=== PATIENT | female | born 1990 | race Caucasian/White ===

== ENCOUNTER 2016-09-30 14:49 | Emergency (ER) | payer MEDICAID | END 2016-09-30 17:02 | disposition home or self-care (01) | LOC: D.ER 14:49 | DX: S16.1XXA Strain of muscle, fascia and tendon at neck level, initial encounter (principal); V49.9XXA Car occupant (driver) (passenger) injured in unspecified traffic accident, initial encounter; Y93.89 Activity, other specified; Y92.410 Unspecified street and highway as the place of occurrence of the external cause; M62.838 Other muscle spasm; F41.9 Anxiety disorder, unspecified; F32.9 Major depressive disorder, single episode, unspecified; F17.200 Nicotine dependence, unspecified, uncomplicated ==

== ENCOUNTER 2017-05-18 18:55 | Emergency (ER) | payer MEDICAID ==
[2017-05-18 19:58] LABS: BASOPHILS 0.1 % (0-2); EOSINOPHILS 4.1 % (0-7); HEMATOCRIT 39.2 % (36.0-48.0); HEMOGLOBIN 13.6 g/dL (12-16); IMMATURE GRANULOCYTES 0.3 % (0-5); LYMPHOCYTES 16.2 % (15-50); MCH 31.5 pg (26.0-34.0); MCHC 34.7 g/dL (31.0-37.0); MCV 90.7 fL (80.0-100.0); MEAN PLATELET VOLUME 11.4 fL (7.4-10.4); MONOCYTES 5.2 % (2-11); NEUTROPHILS 74.1 % (40-80); PLATELET COUNT 260 10x3/uL (130-400); RBC 4.32 10x6/uL (4.00-5.40); RDW 12.1 % (11.5-14.5); WBC 8.7 10x3/uL (4.8-10.8)
[2017-05-18 20:04] LABS: ALKALINE PHOSPHATASE 70 U/L (46-116); ALT (SGPT) 12 U/L (10-68); BILIRUBIN - TOTAL 0.26 mg/dL (0.2-1.3); CALC OSMOLALITY 280 mosm/kg (275-300); CALCIUM 8.7 mg/dL (8.5-10.1); CARBON DIOXIDE 30.3 mmol/L (21.0-32.0); CHLORIDE - SERUM 104 mmol/L (98-107); CREATININE - SERUM 0.7 mg/dL (0.6-1.3); GLUCOSE 74 mg/dL (74-106); POTASSIUM - SERUM 4.1 mmol/L (3.5-5.1); PROTEIN - SERUM 7.6 g/dL (6.4-8.2); SODIUM 141 mmol/L (136-145); UREA NITROGEN 14 mg/dL (7-18); eGFR NON AFRICAN AMERICAN > 90 mL/min (90-120)
[2017-05-18 20:08] LABS: APPEARANCE HAZY (CLEAR); BACTERIA MODERATE /hpf (NONE SEEN); BILIRUBIN NEGATIVE (NEGATIVE); CALCIUM OXALATE CRYSTALS OCC /hpf (NONE SEEN); COLOR YELLOW (YELLOW); GLUCOSE NEGATIVE (NEGATIVE); HYALINE CAST RARE /lpf (NONE SEEN); KETONE NEGATIVE (NEGATIVE); NITRITE NEGATIVE (NEGATIVE); PROTEIN NEGATIVE (NEGATIVE); RED CELLS - URINE 0-5 /hpf (0-5); SPECIFIC GRAVITY 1.005 (1.005-1.020); UROBILINOGEN NORMAL (NORMAL)
[2017-05-18 20:25] LABS: UDS - AMPHET NEGATIVE QUAL (NEGATIVE); UDS - BARB NEGATIVE QUAL (NEGATIVE); UDS - BENZO NEGATIVE QUAL (NEGATIVE); UDS - COCAINE NEGATIVE QUAL (NEGATIVE); UDS - OPIATE POSITIVE QUAL (NEGATIVE); UDS - PCP NEGATIVE QUAL (NEGATIVE); UDS - THC POSITIVE QUAL (NEGATIVE)
[2017-05-18 20:30] LABS: AMYLASE - SERUM 82 U/L (25-115); HCG - QUANTITATIVE (MATERNAL) 1501 mIU/mL; LIPASE 165 U/L (73-393)
[2017-06-11] MEDS ORDERED: ULTRAM50 MG PO (12:30)
[2017-06-11] MEDS ORDERED: ZOLOFT50 MG PO (12:31)
[2017-06-11] MEDS ORDERED: KLONOPIN1 MG PO (12:32)
[2017-06-11] MEDS ORDERED: TENORMIN50 MG PO (12:32)
[2017-06-12 08:50] VITALS: BMI 19.8
== END 2017-05-18 21:18 | disposition home or self-care (01) ==
LOC: D.ER 18:55
PROVIDERS: Family Medicine
DX: N39.0 Urinary tract infection, site not specified (principal); O02.81 Inappropriate change in quantitative human chorionic gonadotropin (hCG) in early pregnancy

== ENCOUNTER 2017-05-26 15:02 | Emergency (ER) | payer MEDICAID ==
[2017-05-26 16:45] LABS: BASOPHILS 0.3 % (0-2); HEMATOCRIT 37.3 % (36.0-48.0); HEMOGLOBIN 12.7 g/dL (12-16); IMMATURE GRANULOCYTES 0.1 % (0-5); MCH 30.8 pg (26.0-34.0); MCV 90.3 fL (80.0-100.0); MEAN PLATELET VOLUME 10.2 fL (7.4-10.4); MONOCYTES 5.6 % (2-11); PLATELET COUNT 233 10x3/uL (130-400); RBC 4.13 10x6/uL (4.00-5.40); RDW 12.2 % (11.5-14.5); WBC 7.7 10x3/uL (4.8-10.8)
[2017-05-26 16:48] LABS: APPEARANCE CLEAR (CLEAR); BILIRUBIN NEGATIVE (NEGATIVE); COLOR YELLOW (YELLOW); GLUCOSE NEGATIVE (NEGATIVE); KETONE NEGATIVE (NEGATIVE); NITRITE NEGATIVE (NEGATIVE); PROTEIN NEGATIVE (NEGATIVE); UROBILINOGEN NORMAL (NORMAL)
[2017-05-26 16:49] LABS: WHITE CELLS - URINE OCC /hpf (0-5)
[2017-05-26 16:50] LABS: EPITHELIAL CELLS 0-5 /hpf (0-5); RED CELLS - URINE OCC /hpf (0-5)
[2017-05-26 17:11] LABS: ALBUMIN 3.7 g/dL (3.4-5.0); ALKALINE PHOSPHATASE 53 U/L (46-116); ALT (SGPT) 15 U/L (10-68); BILIRUBIN - TOTAL 0.29 mg/dL (0.2-1.3); CALC OSMOLALITY 276 mosm/kg (275-300); CALCIUM 8.8 mg/dL (8.5-10.1); CARBON DIOXIDE 25.5 mmol/L (21.0-32.0); CHLORIDE - SERUM 104 mmol/L (98-107); CREATININE - SERUM 0.5 mg/dL (0.6-1.3); GLUCOSE 94 mg/dL (74-106); POTASSIUM - SERUM 4.3 mmol/L (3.5-5.1); SODIUM 139 mmol/L (136-145); UREA NITROGEN 9 mg/dL (7-18); eGFR NON AFRICAN AMERICAN > 90 mL/min (90-120)
[2017-05-26 17:38] LABS: HCG - QUANTITATIVE (MATERNAL) 12840 mIU/mL
[2017-06-11] MEDS ORDERED: ULTRAM50 MG PO (12:30)
[2017-06-11] MEDS ORDERED: ZOLOFT50 MG PO (12:31)
[2017-06-11] MEDS ORDERED: KLONOPIN1 MG PO (12:32)
[2017-06-11] MEDS ORDERED: TENORMIN50 MG PO (12:32)
[2017-06-12 08:50] VITALS: BMI 19.8
== END 2017-05-26 20:19 | disposition home or self-care (01) ==
LOC: D.ER 15:02
PROVIDERS: Family Medicine
DX: O26.891 Other specified pregnancy related conditions, first trimester (principal); Z3A.01 Less than 8 weeks gestation of pregnancy; R10.9 Unspecified abdominal pain

== ENCOUNTER 2017-06-12 05:24 | Day surgery (SDC) | payer MEDICAID ==
[2017-06-11 13:10] LABS: BASOPHILS 0.2 % (0-2); EOSINOPHILS 3.4 % (0-7); HEMATOCRIT 37.6 % (36.0-48.0); HEMOGLOBIN 13.2 g/dL (12-16); IMMATURE GRANULOCYTES 0.2 % (0-5); LYMPHOCYTES 32.7 % (15-50); MCH 31.1 pg (26.0-34.0); MCHC 35.1 g/dL (31.0-37.0); MCV 88.5 fL (80.0-100.0); MONOCYTES 4.8 % (2-11); NEUTROPHILS 58.7 % (40-80); RBC 4.25 10x6/uL (4.00-5.40); RDW 12.4 % (11.5-14.5); WBC 5.6 10x3/uL (4.8-10.8)
[2017-06-11 13:22] LABS: PLATELET COUNT 295 10x3/uL (130-400)
[~2017-06-12] VITALS: Ht 165.1 cm; Wt 54.0 kg
[~2017-06-12 05:24] MED LIST: KLONOPIN1 MG PO; TENORMIN50 MG PO; ULTRAM50 MG PO; ZOLOFT50 MG PO
[2017-06-12 08:50] VITALS: BP 104/62; Ht 165.1 cm; Wt 54.0 kg
[2017-06-12 08:57] LABS: HCG URINE POSITIVE (NEGATIVE)
--- NOTE | 2017-06-12 15:31 | NUR ---
1099--PT COMPLAINS OF PAIN, RATES PAIN 10/10. TORADOL 30MG GIVEN PO SIVP, WILL CONTINUE TO MONITOR. DURGA ATWOOD
--- NOTE | 2017-06-12 15:32 | NUR ---
1413--PT COMPLAINS OF PAIN, RATES PAIN 7/10. PERCOCET 5/325MG X2 TABS GIVEN PO FOR PAIN. PT VOIDS, IV DC'D. DURGA ATWOOD 1450--PT REPORTS PAIN IS GETTING BETTER, RATES PAIN 5/10. DISCHARGE INSTRUCTIONS GIVEN, PT VERBALIZES UNDERSTANDING. PT OFF UNIT VIA WC. DURGA ATWOOD
--- NOTE | 2017-06-24 08:12 | OP ---
PATIENT NAME: ANAHI GEORGE MEDICAL RECORD: [id number] :86 LOCATION:D[facility] ADMISSION DATE: SURGEON: CESAR MARTINEZ MD DATE OF OPERATION: 06/12/2017 PREOPERATIVE DIAGNOSES: 1. Unwanted fertility. 2. Missed . POSTOPERATIVE DIAGNOSES: 1. Unwanted fertility. 2. Missed . PROCEDURE PERFORMED: 1. Diagnostic laparoscopy. 2. Bilateral tubal occlusion using Falope rings. 3. Dilation and evacuation. SURGEON: Cesar Martinez MD ANESTHESIOLOGIST: Dr. Mijares. ANESTHETICS: General. FINDINGS: Unremarkable pelvis. Uterus is approximately 8-week in size, moderate amount of products of conception returned. ESTIMATED BLOOD LOSS: Minimal. FLUIDS: 650 cc. URINE OUTPUT: Quantity sufficient void prior to the procedure. COMPLICATIONS: None. DRAINS: None. INDICATIONS: The patient is a 27-year-old multiparous female with unwanted fertility. The patient has unintended that is no longer progressing. The patient is consented for dilation and evacuation of a missed and tubal occlusion using Falope rings. DESCRIPTION OF PROCEDURE: After informed consent was assured, the patient was taken to the operating room where anesthetic was obtained without difficulty. The patient was then prepped and draped in the usual sterile fashion after being placed in stirrups. Incisions made at the umbilicus and a 5-mm trocar was inserted and pneumoperitoneum developed. An 8 mm port was now placed in the midline, 2 fingerbreadths above the symphysis. Through this, a Falope ring applicator was utilized to manipulate the tubes until the fimbriated ends identified on the left. The ring was now applied at the isthmic portion of the tube with good crease formation. This was repeated on the contralateral side. Again, the tube was followed to the fimbriated end, before the Falope ring applied. Anesthetics placed directly over both tubes. The accessory trocars were removed under visualization as the pneumoperitoneum was released. The primary trocar was removed and the skin was closed. Sterile dressing applied OPERATIVE REPORT [id number] ANAHI GEORGE and the legs were positioned for the dilation and evacuation. A speculum was inserted. The cervix grasped and dilated to accommodate a curved 8 curette. This was placed in the uterus and suction applied. Products of conceptions were removed on several passes. Curettage was not performed until good cry was obtained throughout. Single tooth tenaculum was removed from the cervix and the puncture site has adequate hemostasis. The patient was now taken down from the stirrups and sent to the recovery room in stable condition. Sponge, lap and needle count is correct times 2. TRANSINT:[id number] Voice Confirmation ID: [id number] DOCUMENT ID: [id number] CESAR MARTINEZ MD at 0812 CC: [id number] DICTATION DATE: 06/23/17711 DATABASE TECHNICIAN: 06/23/17 0806 [facility] 06/12/17 [address] [place] [address]
== END 2017-06-12 14:50 | disposition home or self-care (01) ==
LOC: D.OPS 05:24 → D.PAN 10:00 → D.OPS 10:00
PROVIDERS: Obstetrics & Gynecology
DX: O02.89 Other abnormal products of conception (principal); Z30.2 Encounter for sterilization

== ENCOUNTER 2017-07-12 02:56 | Emergency (ER) | payer MEDICAID ==
[2017-06-12 08:50] VITALS: BMI 19.8
[2017-07-12 03:55] LABS: BASOPHILS 0.4 % (0-2); EOSINOPHILS 3.1 % (0-7); HEMATOCRIT 40.5 % (36.0-48.0); HEMOGLOBIN 14.3 g/dL (12-16); IMMATURE GRANULOCYTES 0.2 % (0-5); LYMPHOCYTES 40.1 % (15-50); MCH 31.4 pg (26.0-34.0); MCHC 35.3 g/dL (31.0-37.0); MCV 88.8 fL (80.0-100.0); MEAN PLATELET VOLUME 10.9 fL (7.4-10.4); NEUTROPHILS 42.2 % (40-80); RBC 4.56 10x6/uL (4.00-5.40); RDW 12.6 % (11.5-14.5); WBC 5.6 10x3/uL (4.8-10.8)
[2017-07-12 03:59] LABS: UDS - AMPHET POSITIVE QUAL (NEGATIVE); UDS - BARB NEGATIVE QUAL (NEGATIVE); UDS - BENZO POSITIVE QUAL (NEGATIVE); UDS - COCAINE NEGATIVE QUAL (NEGATIVE); UDS - OPIATE POSITIVE QUAL (NEGATIVE); UDS - PCP NEGATIVE QUAL (NEGATIVE); UDS - THC POSITIVE QUAL (NEGATIVE)
[2017-07-12 04:03] LABS: PLATELET COUNT 209 10x3/uL (130-400)
[2017-07-12 04:03] LABS: APPEARANCE HAZY (CLEAR); BILIRUBIN NEGATIVE (NEGATIVE); COLOR YELLOW (YELLOW); GLUCOSE NEGATIVE (NEGATIVE); KETONE SMALL mg/dL (NEGATIVE); NITRITE NEGATIVE (NEGATIVE); PROTEIN TRACE mg/dL (NEGATIVE); UROBILINOGEN NORMAL (NORMAL)
[2017-07-12 04:04] LABS: BACTERIA NONE SEEN /hpf (NONE SEEN); EPITHELIAL CELLS 0-5 /hpf (0-5)
[2017-07-12 04:10] LABS: HCG SERUM NEGATIVE (NEGATIVE)
[2017-07-12 04:18] LABS: ALBUMIN 4.6 g/dL (3.4-5.0); BILIRUBIN - TOTAL 0.5 mg/dL (0.2-1.3); CALCIUM 9.6 mg/dL (8.5-10.1); CARBON DIOXIDE 27.5 mmol/L (21.0-32.0); CREATININE - SERUM 1.2 mg/dL (0.6-1.3); POTASSIUM - SERUM 3.5 mmol/L (3.5-5.1); PROTEIN - SERUM 8.4 g/dL (6.4-8.2)
== END 2017-07-12 04:30 | disposition home or self-care (01) ==
LOC: D.ER 02:56
PROVIDERS: Family Medicine
DX: R10.2 Pelvic and perineal pain (principal); N93.9 Abnormal uterine and vaginal bleeding, unspecified

== ENCOUNTER 2017-08-17 11:37 | Emergency (ER) | payer MEDICAID ==
[2017-06-12 08:50] VITALS: BMI 19.8
[2017-08-17 12:44] LABS: APPEARANCE HAZY (CLEAR); BILIRUBIN NEGATIVE (NEGATIVE); COLOR YELLOW (YELLOW); GLUCOSE NEGATIVE (NEGATIVE); KETONE NEGATIVE (NEGATIVE); NITRITE NEGATIVE (NEGATIVE); PROTEIN NEGATIVE (NEGATIVE); SPECIFIC GRAVITY 1.025 (1.005-1.020); UROBILINOGEN NORMAL (NORMAL)
[2017-08-17 12:46] LABS: BACTERIA FEW /hpf (NONE SEEN); EPITHELIAL CELLS 0-5 /hpf (0-5); HYALINE CAST 0-5 /lpf (NONE SEEN); MUCUS >1+ /lpf (NONE SEEN); RED CELLS - URINE 0-5 /hpf (0-5); WHITE CELLS - URINE 0-5 /hpf (0-5)
[2017-08-17 14:43] LABS: BASOPHILS 0.3 % (0-2); EOSINOPHILS 9.7 % (0-7); HEMATOCRIT 40.6 % (36.0-48.0); IMMATURE GRANULOCYTES 0.1 % (0-5); LYMPHOCYTES 32.4 % (15-50); MCH 30.7 pg (26.0-34.0); MCHC 34.5 g/dL (31.0-37.0); MEAN PLATELET VOLUME 10.7 fL (7.4-10.4); MONOCYTES 7.6 % (2-11); NEUTROPHILS 49.9 % (40-80); RBC 4.56 10x6/uL (4.00-5.40); RDW 12.4 % (11.5-14.5); WBC 6.7 10x3/uL (4.8-10.8)
[2017-08-17 14:45] LABS: PLATELET COUNT 257 10x3/uL (130-400)
[2017-08-17 14:57] LABS: HCG SERUM NEGATIVE (NEGATIVE)
[2017-08-17 14:59] LABS: ALBUMIN 4.6 g/dL (3.4-5.0); ALKALINE PHOSPHATASE 66 U/L (46-116); ALT (SGPT) 12 U/L (10-68); BILIRUBIN - TOTAL 0.52 mg/dL (0.2-1.3); CALC OSMOLALITY 279 mosm/kg (275-300); CALCIUM 9.4 mg/dL (8.5-10.1); CARBON DIOXIDE 28.7 mmol/L (21.0-32.0); CHLORIDE - SERUM 103 mmol/L (98-107); CREATININE - SERUM 0.8 mg/dL (0.6-1.3); GLUCOSE 86 mg/dL (74-106); POTASSIUM - SERUM 3.9 mmol/L (3.5-5.1); PROTEIN - SERUM 8.2 g/dL (6.4-8.2); SODIUM 140 mmol/L (136-145); UREA NITROGEN 18 mg/dL (7-18); eGFR NON AFRICAN AMERICAN 90 mL/min (90-120)
== END 2017-08-17 17:07 | disposition home or self-care (01) ==
LOC: D.ER 11:37
PROVIDERS: Emergency Medicine; Physician Assistant
DX: K52.9 Noninfective gastroenteritis and colitis, unspecified (principal); R30.0 Dysuria; F17.200 Nicotine dependence, unspecified, uncomplicated

== ENCOUNTER 2018-02-06 01:48 | Emergency (ER) | payer MEDICAID ==
[~2018-02-06] VITALS: Ht 165.1 cm; Wt 61.4 kg
[2018-02-06 01:56] VITALS: Ht 165.1 cm; Wt 61.4 kg
[2018-02-06 04:14] LABS: UDS - AMPHET POSITIVE QUAL (NEGATIVE); UDS - BARB NEGATIVE QUAL (NEGATIVE); UDS - BENZO POSITIVE QUAL (NEGATIVE); UDS - COCAINE POSITIVE QUAL (NEGATIVE); UDS - OPIATE NEGATIVE QUAL (NEGATIVE); UDS - PCP NEGATIVE QUAL (NEGATIVE); UDS - THC NEGATIVE QUAL (NEGATIVE)
[2018-02-06 04:19] LABS: APPEARANCE CLEAR (CLEAR); BILIRUBIN NEGATIVE (NEGATIVE); COLOR YELLOW (YELLOW); GLUCOSE NEGATIVE (NEGATIVE); KETONE NEGATIVE (NEGATIVE); NITRITE NEGATIVE (NEGATIVE); PROTEIN NEGATIVE (NEGATIVE); SPECIFIC GRAVITY 1.015 (1.005-1.020); UROBILINOGEN NORMAL (NORMAL)
[2018-02-06 05:40] VITALS: BP 128/70
== END 2018-02-06 05:35 | disposition home or self-care (01) ==
LOC: D.ER 01:48
PROVIDERS: Family Medicine
DX: T74.21XA Adult sexual abuse, confirmed, initial encounter (principal); G40.909 Epilepsy, unspecified, not intractable, without status epilepticus; F17.200 Nicotine dependence, unspecified, uncomplicated

== ENCOUNTER 2018-07-02 11:53 | Emergency (ER) | payer MEDICAID ==
[~2018-07-02] VITALS: Ht 165.1 cm; Wt 65.9 kg
[2018-07-02 12:04] VITALS: Ht 165.1 cm; Wt 65.9 kg
[2018-07-02 12:37] LABS: BASOPHILS 0.2 % (0-2); EOSINOPHILS 2.6 % (0-7); HEMATOCRIT 39.1 % (36.0-48.0); HEMOGLOBIN 13.9 g/dL (12-16); IMMATURE GRANULOCYTES 0.2 % (0-5); LYMPHOCYTES 26.2 % (15-50); MCH 31.3 pg (26.0-34.0); MCHC 35.5 g/dL (31.0-37.0); MCV 88.1 fL (80.0-100.0); MEAN PLATELET VOLUME 10.7 fL (7.4-10.4); MONOCYTES 5.8 % (2-11); PLATELET COUNT 273 10x3/uL (130-400); RBC 4.44 10x6/uL (4.00-5.40); RDW 12.5 % (11.5-14.5); WBC 8.8 10x3/uL (4.8-10.8)
[2018-07-02 12:50] LABS: ALKALINE PHOSPHATASE 63 U/L (46-116); ALT (SGPT) 15 U/L (10-68); BILIRUBIN - TOTAL 0.49 mg/dL (0.2-1.3); CALC OSMOLALITY 281 mosm/kg (275-300); CALCIUM 8.8 mg/dL (8.5-10.1); CARBON DIOXIDE 24.5 mmol/L (21.0-32.0); CHLORIDE - SERUM 104 mmol/L (98-107); CREATININE - SERUM 0.9 mg/dL (0.6-1.3); GLUCOSE 89 mg/dL (74-106); LIPASE 113 U/L (73-393); POTASSIUM - SERUM 4.1 mmol/L (3.5-5.1); PROTEIN - SERUM 8.2 g/dL (6.4-8.2); SODIUM 141 mmol/L (136-145); UREA NITROGEN 19 mg/dL (7-18); eGFR NON AFRICAN AMERICAN 78 mL/min (90-120)
[2018-07-02 13:35] LABS: APPEARANCE CLEAR (CLEAR); BILIRUBIN NEGATIVE (NEGATIVE); COLOR YELLOW (YELLOW); GLUCOSE NEGATIVE (NEGATIVE); KETONE NEGATIVE (NEGATIVE); NITRITE NEGATIVE (NEGATIVE); PH 7.5 (5.0-6.0); PROTEIN NEGATIVE (NEGATIVE); UROBILINOGEN NORMAL (NORMAL)
[2018-07-02 13:45] LABS: UDS - AMPHET NEGATIVE QUAL (NEGATIVE); UDS - BARB NEGATIVE QUAL (NEGATIVE); UDS - BENZO POSITIVE QUAL (NEGATIVE); UDS - COCAINE NEGATIVE QUAL (NEGATIVE); UDS - OPIATE NEGATIVE QUAL (NEGATIVE); UDS - PCP NEGATIVE QUAL (NEGATIVE); UDS - THC POSITIVE QUAL (NEGATIVE)
[2018-07-02] MEDS ORDERED: DICLOFENAC SODI50 MG PO (15:31)
[2018-07-02 18:37] VITALS: BP 116/74
== END 2018-07-02 15:30 | disposition home or self-care (01) ==
LOC: D.ER 11:53
PROVIDERS: Family Medicine
DX: R10.2 Pelvic and perineal pain (principal); D25.9 Leiomyoma of uterus, unspecified; R11.2 Nausea with vomiting, unspecified; K92.1 Melena

== ENCOUNTER 2019-07-27 00:47 | Observation (INO) | payer OTHER ==
[~2019-07-27] VITALS: Ht 165.1 cm; Wt 70.5 kg
[2019-07-27] VITALS (12 sets, daily range): BP systolic 82–123; BP diastolic 41–73; Ht 165.1 cm; Wt 70.5 kg
[~2019-07-27 00:47] MED LIST changes: +DICLOFENAC SODI50 MG PO
[2019-07-27] MEDS ORDERED: ATIVAN1 MG PO (00:56)
[2019-07-27] MEDS ORDERED: TRAZODONE HCL150 MG PO ×2 (00:56→03:58)
[2019-07-27 01:29] LABS: BASOPHILS 0.2 % (0-2); EOSINOPHILS 1.6 % (0-7); HEMATOCRIT 39.8 % (36.0-48.0); HEMOGLOBIN 13.8 g/dL (12-16); IMMATURE GRANULOCYTES 0.2 % (0-5); LYMPHOCYTES 14.8 % (15-50); MCH 30.9 pg (26.0-34.0); MCHC 34.7 g/dL (31.0-37.0); MCV 89.2 fL (80.0-100.0); MEAN PLATELET VOLUME 10.2 fL (7.4-10.4); MONOCYTES 9.1 % (2-11); NEUTROPHILS 74.1 % (40-80); PLATELET COUNT 281 10x3/uL (130-400); RBC 4.46 10x6/uL (4.00-5.40); RDW 12.7 % (11.5-14.5); WBC 9.2 10x3/uL (4.8-10.8)
[2019-07-27 01:43] LABS: CALC OSMOLALITY 273 mosm/kg (275-300); CALCIUM 8.8 mg/dL (8.5-10.1); CARBON DIOXIDE 27.6 mmol/L (21.0-32.0); CHLORIDE - SERUM 102 mmol/L (98-107); CREATININE - SERUM 0.9 mg/dL (0.6-1.3); GLUCOSE 85 mg/dL (74-106); POTASSIUM - SERUM 4.5 mmol/L (3.5-5.1); SODIUM 138 mmol/L (136-145); UREA NITROGEN 10 mg/dL (7-18); eGFR NON AFRICAN AMERICAN 77 mL/min (90-120)
[2019-07-27 01:46] LABS: UDS - AMPHET POSITIVE QUAL (NEGATIVE); UDS - BARB NEGATIVE QUAL (NEGATIVE); UDS - BENZO POSITIVE QUAL (NEGATIVE); UDS - COCAINE NEGATIVE QUAL (NEGATIVE); UDS - OPIATE POSITIVE QUAL (NEGATIVE); UDS - PCP NEGATIVE QUAL (NEGATIVE); UDS - THC POSITIVE QUAL (NEGATIVE)
[2019-07-27 01:48] LABS: ALBUMIN 3.6 g/dL (3.4-5.0); ALKALINE PHOSPHATASE 73 U/L (46-116); ALT (SGPT) 20 U/L (10-68); BILIRUBIN - TOTAL 0.46 mg/dL (0.2-1.3); PROTEIN - SERUM 7.6 g/dL (6.4-8.2)
[2019-07-27 01:52] LABS: APPEARANCE CLEAR (CLEAR); BILIRUBIN NEGATIVE (NEGATIVE); COLOR YELLOW (YELLOW); GLUCOSE NEGATIVE (NEGATIVE); KETONE SMALL mg/dL (NEGATIVE); NITRITE NEGATIVE (NEGATIVE); PROTEIN NEGATIVE (NEGATIVE); UROBILINOGEN NORMAL (NORMAL)
[2019-07-27 01:53] LABS: BACTERIA FEW /hpf (NEGATIVE); EPITHELIAL CELLS 0-5 /hpf (0-5); RED CELLS - URINE 0-5 /hpf (0-5); WHITE CELLS - URINE 0-5 /hpf (NEGATIVE)
[2019-07-27 01:54] LABS: HCG URINE NEGATIVE (NEGATIVE)
[2019-07-27] MEDS ORDERED: FLAGYL500 MG PO (02:09)
--- NOTE | 2019-07-27 03:50 | NUR ---
REPORT RECEIVED. PT ARRIVED TO UNIT ESCORTED BY ER STAFF. PT AAOX4, NO ACUTE DISTRESS AT THIS TIME. TRANSFERRED TO ICU BED WITH ALMOST NO ASSISTANCE. ROOM AIR, PIV IN LT AC INFUSING, SEE IV FLOWSHEET. ASSESSMENT COMPLETE, SEE FLOWSHEET. WILL CONTINUE TO MONITOR.
--- NOTE | 2019-07-27 05:00 | NUR ---
PT STATES SHE "DOESN'T FEEL RIGHT." VITALS STABLE, PT ASSESSED, NO ACUTE DISTRESS NOTED. WILL CONTINUE TO MONITOR.
--- NOTE | 2019-07-27 07:30 | NUR ---
PATIENT REPORT RECIEVED. PATIENT RESTING. NO ACUTE DISTRESS. PATIENT STATED SHE IS "ANNOYED" AND READY TO GO HOME. [facility] CONSULT FAXED. SPOKE WITH AL RN REGARDING CONSULT DUE TO PATIENT DENYING ANY SUICIDAL THOUGHTS. WILL CONTINUE TO MONITOR
--- NOTE | 2019-07-27 09:54 | NUR ---
family came to visit. wanted to know what happened. asked patients permission. stated she wanted to be confidential from now on
--- NOTE | 2019-07-27 09:54 | NUR ---
family aunt radha at bedside with permission of patient. patient has family members phone calling people to see if they can picked edge sewing machine operator her stuff
--- NOTE | 2019-07-27 11:30 | NUR ---
EATING TRAY. REQUESTED RANCH. CALLED FOR IT. TURNED OFF LIGHTS. BLANKET PROVIDED. WILL CONTINUE TO MONITOR
--- NOTE | 2019-07-27 13:14 | NUR ---
PATIENT AWAITING DR MCRAE ARRIVAL. READY TO LEAVE
--- NOTE | 2019-07-27 15:00 | NUR ---
patient did admit to taking 3 15 mg of morphine last night
--- NOTE | 2019-07-27 15:30 | NUR ---
DR MCRAE AT BEDSIDE
--- NOTE | 2019-07-27 16:23 | NUR ---
mary refused wheelchair and did not care for medications that were given to pharmacy. stated she just "wanted to get out of here" offered i would go pickling drum operator her perscription and she refused. left with family friend. reminded her of dr kayleen rios tomorrow.
--- NOTE | 2019-07-28 12:00 | CN ---
PATIENT NAME:ANAHI HOGUE MEDICAL RECORD: [id number] : 86 LOCATION:ANUP.2304 ADMIT DATE: 07/27/19 ACCOUNT: [id number] CONSULTING PHYSICIAN: NYLA MCRAE MD REFERRING PHYSICIAN: ELMA SIMPSON DO DATE OF CONSULTATION: 07/27/2019 PSYCHIATRIC CONSULTATION IDENTIFYING DATA: The patient is 29 years old and she is admitted to the hospital secondary to an overdose. CHIEF COMPLAINT: None. HISTORY OF PRESENT ILLNESS: The patient endorses numerous psychosocial problems. She confesses to me that she is addicted to opiates. She says that she had taken some morphine yesterday along with her scheduled dose of Ativan or perhaps an extra dose of her scheduled prescription Ativan and then had 1 or 2 glasses of wine. She did intend to kill herself. She has tried to kill herself in the past and discusses that with me. She discusses the psychosocial stress that she is under, but denies that she would seek or did seek to harm herself yesterday. She does endorse a lot of depressive symptoms. She apparently became addicted to opiates at the age of 17 after she had breast augmentation surgery and has been using opiates ever since. In 2012, she overdosed on heroin. Most recently, she has been using morphine. ASSESSMENT: 1. Major depression. 2. Opiate dependence. 3. Polysubstance abuse. 4. Accidental overdose. PLAN: The patient does not need to be sent to inpatient psychiatric care on an involuntary basis. She is interested in substance abuse treatment and is currently involved in outpatient mental health care and wants to return to continue that process. I have recommended Suboxone treatment to her since she is not able to go to a residential program and have given her information about how to make an appointment with a local Suboxone clinic. TRANSINT:[id number] Voice Confirmation ID: [id number] DOCUMENT ID: [id number] NYLA MCRAE MD at 1200 CC: [id number] DICTATION DATE: 07/27/19 1540 COPY CUTTER: 07/27/19 1625 [facility] IN 07/27/19 [id number] [place] [address]
== END 2019-07-27 16:27 | disposition home or self-care (01) ==
LOC: D.ER 00:47 → D.ICU 03:02 → OBSVTIME 03:02 → D.ICU 16:27
PROVIDERS: Emergency Medicine; ADMIT Family Medicine; ATTEND Family Medicine
DX: T42.4X1A Poisoning by benzodiazepines, accidental (unintentional), initial encounter (principal); F17.203 Nicotine dependence unspecified, with withdrawal; F41.8 Other specified anxiety disorders; F31.9 Bipolar disorder, unspecified; N89.8 Other specified noninflammatory disorders of vagina; F12.90 Cannabis use, unspecified, uncomplicated; Z72.89 Other problems related to lifestyle; F11.20 Opioid dependence, uncomplicated

== ENCOUNTER 2019-09-25 17:04 | Inpatient (IN) | payer MEDICAID ==
[~2019-09-25] VITALS: Ht 165.1 cm; Wt 62.5 kg
[~2019-09-25 17:04] MED LIST changes: +ATIVAN1 MG PO; +FLAGYL500 MG PO; +TRAZODONE HCL150 MG PO
[2019-09-25 17:37] LABS: BILIRUBIN NEGATIVE (NEGATIVE); GLUCOSE NEGATIVE (NEGATIVE); KETONE NEGATIVE (NEGATIVE); NITRITE NEGATIVE (NEGATIVE); SPECIFIC GRAVITY 1.015 (1.005-1.020); UROBILINOGEN NORMAL (NORMAL)
[2019-09-25 17:39] LABS: BACTERIA MODERATE /hpf (NEGATIVE); BASOPHILS 0.4 % (0-2); EOSINOPHILS 3.4 % (0-7); EPITHELIAL CELLS 0-5 /hpf (0-5); HEMATOCRIT 42.3 % (36.0-48.0); HEMOGLOBIN 14.6 g/dL (12-16); LYMPHOCYTES 32.3 % (15-50); MCH 30.5 pg (26.0-34.0); MCHC 34.5 g/dL (31.0-37.0); MCV 88.5 fL (80.0-100.0); MEAN PLATELET VOLUME 10.8 fL (7.4-10.4); MONOCYTES 8.4 % (2-11); NEUTROPHILS 55.5 % (40-80); PLATELET COUNT 257 10x3/uL (130-400); RBC 4.78 10x6/uL (4.00-5.40); RDW 12.3 % (11.5-14.5); WBC 4.7 10x3/uL (4.8-10.8)
[2019-09-25 17:40] LABS: AMORPHOUS SEDIMENT <1+ /lpf (NONE SEEN); HCG URINE NEGATIVE (NEGATIVE)
--- NOTE | 2019-09-25 17:46 | NUR ---
EMS CALLED BACK AND STATE PT HAS BEEN POSTING ON SOCIAL MEDIA THAT SHE IS SI. WAS SAID TO BE SAYING GOOD BYE. PT HAD DENIED SI TO NURSE. WILL HAVE PT SCREENED.
[2019-09-25 17:50] LABS: CALC OSMOLALITY 281 mosm/kg (275-300); CARBON DIOXIDE 28.5 mmol/L (21.0-32.0); CHLORIDE - SERUM 105 mmol/L (98-107); CREATININE - SERUM 0.8 mg/dL (0.6-1.3); GLUCOSE 83 mg/dL (74-106); POTASSIUM - SERUM 3.8 mmol/L (3.5-5.1); SODIUM 143 mmol/L (136-145); UREA NITROGEN 6 mg/dL (7-18); eGFR NON AFRICAN AMERICAN 89 mL/min (90-120)
[2019-09-25 17:56] LABS: UDS - AMPHET POSITIVE QUAL (NEGATIVE); UDS - BARB NEGATIVE QUAL (NEGATIVE); UDS - BENZO POSITIVE QUAL (NEGATIVE); UDS - COCAINE POSITIVE QUAL (NEGATIVE); UDS - OPIATE NEGATIVE QUAL (NEGATIVE); UDS - PCP NEGATIVE QUAL (NEGATIVE); UDS - THC POSITIVE QUAL (NEGATIVE)
[2019-09-25 17:58] LABS: ALKALINE PHOSPHATASE 76 U/L (30-120); ALT (SGPT) 12 U/L (10-68); BILIRUBIN - TOTAL 0.43 mg/dL (0.2-1.3); MAGNESIUM - SERUM 1.8 mg/dL (1.8-2.4); PROTEIN - SERUM 7.9 g/dL (6.4-8.2)
--- NOTE | 2019-09-25 18:31 | NUR ---
According to the suicide assessment the patient rates high for suicide and she will require a 1:1 observation. Will provide her a suicide resource flyer and a safety plan.
--- NOTE | 2019-09-25 18:42 | NUR ---
MOVED PT TO ROOM 21 , PLACED IN PAPER SCRUBS AND PLACE BELONGINGS AT NURSES STATION.
--- NOTE | 2019-09-25 20:40 | NUR ---
REC'D PATIENT FROM ER. 1:1 SITTER, EVERYTHING OUT OF ROOM. BREATHING ROOM AIR. A/O X 4, DROWSY. ASSESSMENT COMPLETED. DENIES ANY NEEDS
--- NOTE | 2019-09-25 21:00 | NUR ---
ALL PERSONAL BELONGINGS BROUGHT FROM ER PLACED AT NURSING STATION
[2019-09-25 21:09] VITALS: BP 115/71; BMI 23.5
[2019-09-25 22:00] VITALS: BP 143/64
[2019-09-25 23:00] VITALS: BP 130/74
--- NOTE | 2019-09-25 23:00 | NUR ---
RE-ASSESSMENT COMPLETED. NO CHANGES SINCE LAST ASSESSMENT. EYES CLOSED, WAKES TO NAME CALLED SEVERAL TIMES.
[2019-09-26] VITALS (24 sets, daily range): BP systolic 100–138; BP diastolic 57–93; Ht 165.1 cm; Wt 62.5 kg
--- NOTE | 2019-09-26 01:00 | NUR ---
EYES CLOSED, EASILY WAKES. REQUESTING SPRITE. INDEPENDENT WITH REPOSITIONING
--- NOTE | 2019-09-26 03:00 | NUR ---
VSS. EYES CLOSED, EASILY WAKES. DENIES ANY NEEDS
--- NOTE | 2019-09-26 05:00 | NUR ---
EYES CLOSED, EASILY WAKES. DENIES ANY NEEDS. STATES SHE THINKS SHE IS STARTING HER PERIOD BUT NOT SURE.
--- NOTE | 2019-09-26 07:41 | NUR ---
PT RESTING QUIETLY, AROUSES EASILY, VSS.PT STATES THAT IT WAS HEROIN THAT SHE ATTEMPTED SUICIDE WITH TO OD. PT STATES THAT SHE DOES NOT HAVE SUIDICAL IDEATION AT PRESENT TIME.
--- NOTE | 2019-09-26 08:42 | NUR ---
PSYCH CONSULT FAXED TO [facility] AND CALLED AND SPKE TO NURSING STAFF RE: CONSULT.
--- NOTE | 2019-09-26 10:31 | NUR ---
PT UP TO BSC TO VOID.
--- NOTE | 2019-09-26 10:59 | NUR ---
PT RESTING QUIETLY. VSS. CONSULT CALLED TO PSYCH DEPT AGAIN AND [facility] REPORT THAT THEY DID GET THE FACESHEET AND PHYSICIAN ORDER FOR CONSULT FOR DR MAS.
--- NOTE | 2019-09-26 15:54 | NUR ---
KAYLA WADDELL FOR DR JACKSON HERE ON ROUNDS AND STATES OK TO PLACE INPATIENT PSYCH WHEN MEDICALLY STABLE.
--- NOTE | 2019-09-26 15:58 | NUR ---
DR GRAF REPORTS THAT PT IS MEDICALLY STABLE FOR TRANSFER WHEN PLACEMENT FOUND. TULIO WITH CM NOTIFIED OF NEED FOR PLACEMENT.
--- NOTE | 2019-09-26 17:42 | MORECARE ---
CASE MANAGEMENT DISCHARGE SUMMARY PATIENT: ANAHI HOGUE UNIT: [id number] ADM DATE: 09/25/19 AGE: 29 : 88 SEX: F ROOM/BED: D.2312 AUTHOR: DENISE UREÑA PHYSICIAN: REFERRING PHYSICIAN: DENISE GRAF MD DATE OF SERVICE: 09/26/19 Discharge Plan Patient Name: ANAHI HOGUE Facility: [facility]:[place] : 1990 Planned Disposition: Psych facility Anticipated Discharge Date: Discharge Date: Expected LOS: Initial Reviewer: [email or web address] Initial Review Date: 09/25/2019 Generated: 09/26/19 6:42 pm External Providers External Provider: [facility] Next Contact Date: Service Request Date: Service Type: Resolution: Reviewer: Comments: Patient Name: ANAHI HOGUE Page [phone] at 1742 All edits/amendments must be made on the electronic document DICTATION DATE: 09/26/191741 ARTS THERAPIST: JEISON 09/26/191741 RPT#: [id number] DC DATE: STATUS: ADM IN [facility] [address] [place] [address] END OF REPORT
--- NOTE | 2019-09-26 17:49 | MORECARE ---
CASE MANAGEMENT DISCHARGE SUMMARY PATIENT: ANAHI HOGUE UNIT: [id number] ADM DATE: 09/25/19 AGE: 29 : 88 SEX: F ROOM/BED: D.2312 AUTHOR: DENISE UREÑA PHYSICIAN: REFERRING PHYSICIAN: DENISE GRAF MD DATE OF SERVICE: 09/26/19 Discharge Plan Patient Name: ANAHI HOGUE Facility: [facility]:[place] : 1990 Planned Disposition: Psych facility Anticipated Discharge Date: Discharge Date: Expected LOS: Initial Reviewer: [email or web address] Initial Review Date: 09/25/2019 Generated: 09/26/19 6:49 pm Comments DCP- Discharge Planning Updated by [email or web address]: Romi Cardona on 09/26/19 4:[address] Patient Name: ANAHI HOGUE Admission Status: ER Accout number: [id number] Admission Date: 09-25-2019 : 1990 Admission Diagnosis: Attending: DENISE GRAF Current LOS: 1 Anticipated DC Date: Planned Disposition: Psych facility Primary Insurance: MEDICAID [place] PENDING Discharge Planning Comments: Patient is willing to go to inpatient psych placement on a voluntary basis. CM notified transfer center and faxed packet. CM will continue to follow and assist as needed with discharge planning / needs. Veterinary Nurse: Romi Cardona DCPIA - Discharge Planning Initial Assessment Updated by [email or web address]: Romi Cardona on 09/26/19 5:43 pm * Is the patient Alert and Oriented? Yes * How many steps to enter\exit or inside your home? * PCP no pcp * Pharmacy [facility] * Preadmission Environment Home Alone * ADLs Independent * Equipment None * Verbal permission to speak to the caregivers and representatives has been obtained from the patient. N/A * Community resources currently utilized None * Additional services required to return to the preadmission environment? No * Can the patient safely return to the preadmission environment? Yes * Has this patient been hospitalized within the prior 30 days at any hospital? No Last DP export: 09/26/19 4:42 p Patient Name: ANAHI HOGUE Page [phone] at 1749 All edits/amendments must be made on the electronic document DICTATION DATE: 09/26/191748 CLINICAL PRACTICE CONSULTANT: JEISON 09/26/191748 RPT#: [id number] DC DATE: STATUS: ADM IN [facility] [address] [place] [address] END OF REPORT
--- NOTE | 2019-09-26 19:00 | NUR ---
SHIFT ASSESSMENT COMPLETED. PT CARE ASSUMED, MONITORS ON AND WORKING, VITALS STABLE, SITTER WITH PT. PT AWAKE AND ALERT, NO SIGNS/SYMPTOMS OF PAIN OR DISCOMFORT NOTED. SEE FLOW SHEET FOR FURTHER DETAILS. WILL CONTINUE TO OBSERVE.
--- NOTE | 2019-09-26 21:00 | NUR ---
PT COMPLAINING OF IV SITE BURNING, RN RE SITED NEW PIV ON FIRST ATTEMPT IN LEFT FOREARM, PT DENIES ANY COMPLAINT OF PAIN OR DISCOMFORT WITH NEW IV. PT AWAKE AND ALERT, MONITORS ON AND WORKING, HRR NS - SINUS SAMMIE AT TIMES OF REST, WILL CONTINUE TO OBSERVE.
--- NOTE | 2019-09-26 23:00 | NUR ---
PT LYING IN BED RESTING, MONITORS ON AND WORKING, SEE FLOW SHEET FOR FURTHER DETAILS. WILL CONTINUE TO OBSERVE.
[2019-09-27] VITALS (11 sets, daily range): BP systolic 92–126; BP diastolic 56–74
--- NOTE | 2019-09-27 03:00 | NUR ---
PT LYING IN BED RESTING, MONITORS ON AND WORKING, VITALS STABLE. SEE FLOW SHEET FOR FURTHER DETAILS. WILL CONTINUE TO OBSERVE.
--- NOTE | 2019-09-27 09:19 | NUR ---
0700 ASLEEP AWAKENS EASILY VSS VOICES NO C/O PAIN ASSESSMENT COMPLETE D5LR INFUSING TO LEFT FA SITE SATISFACTORY
--- NOTE | 2019-09-27 09:23 | NUR ---
0900 C/O ACHE TO CHEST 01/13 PAIN TORADOL 15MG IV GIVEN SITTING AT BEDSIDE EATING BREAKFAST APPETITE GOOD
--- NOTE | 2019-09-27 12:01 | NUR ---
1100 RESTING QUIETLY WITH EYES CLOSED
--- NOTE | 2019-09-27 12:02 | NUR ---
1200 TRANSFERRED TO NEW ROOM IN ICU 2307 LUNCH TRAY SERVED ATE A FEW BITES STATED SHE WASNT THAT HUNGRY RIGHT NOW OFFERED TO GET HER SOMETHING TO EAT WHEN SHE DESIRED TO EAT VERBALIZED UNDERSTANDING
--- NOTE | 2019-09-27 12:33 | NUR ---
1230 PATIENTS FATHER CALLED REQUESTING TO COME GRAIN OPERATIONS MANAGER PATIENTS CELL PHONE. PATIENT SAID SHE DID NOT WANT HER FATHER TO HAVE HER PHONE. WHEN FATHER CALLS BACK, RN WILL INFORM HIM OF HER STATEMENT
[2019-09-27] MEDS ORDERED: MACROBID100 MG PO (13:36)
--- NOTE | 2019-09-27 15:33 | NUR ---
1500 AWAKE DRINKING SPRITE SITTING UP ON SIDE OF BED. UP TO BSC VOIDED 500ML DARK FOUL SMELLING
--- NOTE | 2019-09-27 15:35 | NUR ---
1510 C/O CHEST ACHING 8/ TORADOL 15 MG IV GIVEN
--- NOTE | 2019-09-27 15:35 | NUR ---
1535 SALINE LOCKED LEFT FA IV
--- NOTE | 2019-09-27 17:02 | MORECARE ---
CASE MANAGEMENT DISCHARGE SUMMARY PATIENT: ANAHI HOGUE UNIT: [id number] ADM DATE: 09/25/19 AGE: 29 : 88 SEX: F ROOM/BED: D.2312 AUTHOR: ADELITA,DOC PHYSICIAN: REFERRING PHYSICIAN: DENISE GRAF MD DATE OF SERVICE: 09/27/19 Discharge Plan Patient Name: ANAHI HOGUE Facility: [facility]:[place] : 1990 Planned Disposition: Psych facility Anticipated Discharge Date: Discharge Date: Expected LOS: Initial Reviewer: [email or web address] Initial Review Date: 09/25/2019 Generated: 09/27/19 6:01 pm Comments DCP- Discharge Planning Updated by [email or web address]: Romi Cardona on 09/27/19 4:[address] CM called transfer center and checked status on inpatient psych placement. Thus far patient has been declined from [facility] waiting decision with Kanchan. CM will continue to follow and assist as needed with discharge planning / needs. DCP- Discharge Planning Updated by [email or web address]: Romi Cardona on 09/26/19 4:[address] Patient Name: ANAHI HOGUE Admission Status: ER Accout number: [id number] Admission Date: 09-25-2019 : 1990 Admission Diagnosis: Attending: DENISE GRAF Current LOS: 1 Anticipated DC Date: Planned Disposition: Psych facility Primary Insurance: MEDICAID [place] PENDING Discharge Planning Comments: Patient is willing to go to inpatient psych placement on a voluntary basis. CM notified transfer center and faxed packet. CM will continue to follow and assist as needed with discharge planning / needs. Knife Machine Operator: Romi Cardona DCPIA - Discharge Planning Initial Assessment Updated by [email or web address]: Romi Cardona on 09/26/19 5:43 pm * Is the patient Alert and Oriented? Yes * How many steps to enter\exit or inside your home? * PCP no pcp * Pharmacy [facility] * Preadmission Environment Home Alone * ADLs Independent * Equipment None * Verbal permission to speak to the caregivers and representatives has been obtained from the patient. N/A * Community resources currently utilized None * Additional services required to return to the preadmission environment? No * Can the patient safely return to the preadmission environment? Yes * Has this patient been hospitalized within the prior 30 days at any hospital? No Last DP export: 09/26/19 4:49 p Patient Name: ANAHI HOGUE Page 77020 at 1702 All edits/amendments must be made on the electronic document DICTATION DATE: 09/27/191700 DRIVEWAY SEALER: JEISON 09/27/191700 RPT#: [id number] DC DATE: STATUS: ADM IN [facility] [address] [place] [address] END OF REPORT
--- NOTE | 2019-09-27 18:41 | NUR ---
1700 DINNER TRAY SERVED APPETITE FAIR EXPLAINED THAT HOSP IN PROCESS OF INPATIENT TREATMENT [facility] IN [place] CALLED WITH QUESTIONS FOR POSSIBLE PLACEMENT NOTIFIED ORANGE PEEL OPERATOR, TULIO, WHO THEN NOTIFIED [facility] FOR PSGURINDER DENIS.
--- NOTE | 2019-09-27 18:46 | NUR ---
1835 MAGED [facility] CALLED AND REQUESTED LAST TWO DAYS OF NOTES FAXED TO HER AT [phone]
--- NOTE | 2019-09-27 18:49 | NUR ---
MAGED REQUESTED THAT PATIENT AMBULATE IN ICU HALLS TO VERIFY THAT SHE WAS CAPABLE OF AMBULATION
--- NOTE | 2019-09-27 18:59 | MORECARE ---
CASE MANAGEMENT DISCHARGE SUMMARY PATIENT: ANAHI HOGUE UNIT: [id number] ADM DATE: 09/25/19 AGE: 29 : 88 SEX: F ROOM/BED: D.2312 AUTHOR: ADELITA,DOC PHYSICIAN: REFERRING PHYSICIAN: DENISE GRAF MD DATE OF SERVICE: 09/27/19 Discharge Plan Patient Name: ANAHI HOGUE Facility: [facility]:[place] : 1990 Planned Disposition: Psych facility Anticipated Discharge Date: Discharge Date: Expected LOS: Initial Reviewer: [email or web address] Initial Review Date: 09/25/2019 Generated: 09/27/19 7:58 pm Comments DCP- Discharge Planning Updated by [email or web address]: Romi Cardona on 09/27/19 5:[address] CM spoke with Quincy @ [facility] [phone] regarding mental health eval for placement and auth for days to be approved since patient only has Medicaid pending. [facility] stated that patient could be approved for 2 days for inpatient psych. CM sent psych eval from hospital stay to Quincy. Quincy was going to be calling Hillary at [facility] center [phone] to let her know about the auth. CM will continue to follow and assist as needed with discharge planning / needs. DCP- Discharge Planning Updated by [email or web address]: Romi Cardona on 09/27/19 4:[address] CM called transfer center and checked status on inpatient psych placement. Thus far patient has been declined from [facility] waiting decision with Kanchan. CM will continue to follow and assist as needed with discharge planning / needs. DCP- Discharge Planning Updated by [email or web address]: Romi Cardona on 09/26/19 4:[address] Patient Name: ANAHI HOGUE Admission Status: ER Accout number: [id number] Admission Date: 09-25-2019 : 1990 Admission Diagnosis: Attending: DENISE GRAF Current LOS: 1 Anticipated DC Date: Planned Disposition: Psych facility Primary Insurance: MEDICAID [place] PENDING Discharge Planning Comments: Patient is willing to go to inpatient psych placement on a voluntary basis. CM notified transfer center and faxed packet. CM will continue to follow and assist as needed with discharge planning / needs. Business Librarian: Romi Cardona DCPIA - Discharge Planning Initial Assessment Updated by [email or web address]: Romi Cardona on 09/26/19 5:43 pm * Is the patient Alert and Oriented? Yes * How many steps to enter\exit or inside your home? * PCP no pcp * [facility] * Preadmission Environment Home Alone * ADLs Independent * Equipment None * Verbal permission to speak to the caregivers and representatives has been obtained from the patient. N/A * Community resources currently utilized None * Additional services required to return to the preadmission environment? No * Can the patient safely return to the preadmission environment? Yes * Has this patient been hospitalized within the prior 30 days at any hospital? No Last DP export: 09/27/19 4:02 p Patient Name: ANAHI HOGUE Page 72289 at 1859 All edits/amendments must be made on the electronic document DICTATION DATE: 09/27/191857 AURICULAR THERAPIST: JEISON 09/27/191857 RPT#: [id number] DC DATE: STATUS: ADM IN [facility] [address] [place] [address] END OF REPORT
--- NOTE | 2019-09-27 22:03 | NUR ---
IV DC'D WITH PRESSURE APPLIED. SITE WITHOUT REDNESS OR EDEMA NOTED. DRESSING AND TAPE APPLIED.
--- NOTE | 2019-09-27 22:05 | NUR ---
EMS HERE PATIENT MOVED TO STRETCHER WITH MINIMAL ASSIST. PAPERWORK GIVEN TO EMS. PATIENT CARE TURNED OVER TO EMS AND PATIENT LEFT WITH EMS THROUGH ICU DOORS.
--- NOTE | 2019-09-28 15:39 | MORECARE ---
CASE MANAGEMENT DISCHARGE SUMMARY PATIENT: ANAHI HOGUE UNIT: [id number] ADM DATE: 09/25/19 AGE: 29 : 86 SEX: F ROOM/BED: D.2307 AUTHOR: ADELITA,DOC PHYSICIAN: REFERRING PHYSICIAN: DENISE GRAF MD DATE OF SERVICE: 09/28/19 Discharge Plan Patient Name: ANAHI HOGUE Facility: [facility]:[place] : 1990 Planned Disposition: Psych facility Anticipated Discharge Date: Discharge Date: 09/27/2019 Expected LOS: Initial Reviewer: [email or web address] Initial Review Date: 09/25/2019 Generated: 09/28/19 4:39 pm Comments DCP- Discharge Planning Updated by [email or web address]: Romi Cardona on 09/27/19 5:[address] CM spoke with [facility] [phone] regarding mental health eval for placement and auth for days to be approved since patient only has Medicaid pending. [facility] stated that patient could be approved for 2 days for inpatient psych. CM sent psych eval from hospital stay to [facility]. [facility] was going to be calling Hillary at [facility] call center [phone] to let her know about the auth. CM will continue to follow and assist as needed with discharge planning / needs. DCP- Discharge Planning Updated by [email or web address]: Romi Cardona on 09/27/19 4:[address] CM called transfer center and checked status on inpatient psych placement. Thus far patient has been declined from [facility] waiting decision with Nicolasa and Danilo. CM will continue to follow and assist as needed with discharge planning / needs. DCP- Discharge Planning Updated by [email or web address]: Romi Cardona on 09/26/19 4:[address] Patient Name: ANAHI HOGUE Admission Status: ER Accout number: [id number] Admission Date: 09-25-2019 : 1990 Admission Diagnosis: Attending: DENISE GRAF Current LOS: 1 Anticipated DC Date: Planned Disposition: Psych facility Primary Insurance: MEDICAID [place] PENDING Discharge Planning Comments: Patient is willing to go to inpatient psych placement on a voluntary basis. CM notified transfer center and faxed packet. CM will continue to follow and assist as needed with discharge planning / needs. [employer] Line Core Feeder: Romi Cardona DCPIA - Discharge Planning Initial Assessment Updated by [email or web address]: Romi Cardona on 09/26/19 5:43 pm * Is the patient Alert and Oriented? Yes * How many steps to enter\exit or inside your home? * PCP no pcp * Pharmacy [facility] * Preadmission Environment Home Alone * ADLs Independent * Equipment None * Verbal permission to speak to the caregivers and representatives has been obtained from the patient. N/A * Community resources currently utilized None * Additional services required to return to the preadmission environment? No * Can the patient safely return to the preadmission environment? Yes * Has this patient been hospitalized within the prior 30 days at any hospital? No Last DP export: 09/27/19 5:59 p Patient Name: ANAHI HOGUE Page [id number] at 1539 All edits/amendments must be made on the electronic document DICTATION DATE: 09/28/19 1539 PUBLIC ADDRESS SYSTEM OPERATOR: JEISON 09/28/19 1539 RPT#: [id number] DC DATE:09/27/19 STATUS: DIS IN [facility] [address] [place] [address] END OF REPORT
== END 2019-09-27 22:05 | disposition short-term general hospital (02) | DRG 918 ==
LOC: D.ER 17:04 → D.ICU 18:21
PROVIDERS: Emergency Medicine; ADMIT Family Medicine; ATTEND Family Medicine
DX: T42.4X2A Poisoning by benzodiazepines, intentional self-harm, initial encounter (principal); N39.0 Urinary tract infection, site not specified; F33.2 Major depressive disorder, recurrent severe without psychotic features; F41.1 Generalized anxiety disorder; T40.1X2A Poisoning by heroin, intentional self-harm, initial encounter; F17.210 Nicotine dependence, cigarettes, uncomplicated